=== PATIENT | male | born 1950 | race Caucasian/White ===

== ENCOUNTER 2019-03-12 16:45 | Emergency (ER) | payer MEDICARE, BC ==
[~2019-03-12] VITALS: Ht 172.7 cm; Wt 110.0 kg
--- NOTE | 2019-03-12 16:58 | NUR ---
PT BIB EMS. PER PT, HE TRIPPED ON A BENCH AT THE [facility] AND LANDED ON HIS NEW HIP REPLACEMENT. PER PT, HE GOT A HIP REPLACEMENT IN SEP 2018. HE REPORTS HIS PAIN TO BE A "3 OR 4" AND HAS NO SIGNS OF DISTRESS. WHEN EMS BROUGHT HIM, HE GOT UP UNASSISTED OFF THE EMS GURNEY AND WALKED INTO THE HOSPITAL ROOM WITHOUT ANY SIGNS OF DISTRESS. ROUNDED AND POC IS IMAGING. VSS.
--- NOTE | 2019-03-12 17:49 | NUR ---
PT STATES HIS HIP IS "KIND OF SORE BUT DOESN'T HURT THAT BAD". PT DENIES ANY NEEDS.
[2019-03-12 18:03] VITALS: BP 148/84
--- NOTE | 2019-03-12 18:03 | NUR ---
pt discharged with discharge instructions and follow up instructions.
== END 2019-03-12 18:06 | disposition home or self-care (01) ==
LOC: ED 17:23
DX: S70.02XA Contusion of left hip, initial encounter (principal); Z96.642 Presence of left artificial hip joint; W01.198A Fall on same level from slipping, tripping and stumbling with subsequent striking against other object, initial encounter; Y93.89 Activity, other specified; Y92.59 Other trade areas as the place of occurrence of the external cause; Y99.8 Other external cause status
CPT/HCPCS: 99283